=== PATIENT | male | born 1970 | race Caucasian/White ===

== ENCOUNTER 2018-09-29 08:03 | Outpatient (CLI) | payer OTHER ==
--- NOTE | 2018-09-29 12:06 | HP ---
HISTORY OF PRESENT ILLNESS: Mr. Julianne Tracy is a very pleasant 47-year-old gentleman, who [facility] for evaluation of multiple wounds of an intertriginous area of the lower abdomen. The patient states that the wounds have been present for approximately 1 year. He states that he was recently seen by Benita Dodson NP, who placed the patient on mupirocin ointment and clotrimazole ointment. The patient was also placed on doxycycline, which he is taking as prescribed. At the time of the patient's visit with Benita Dodson NP, the patient was referred to the [facility] for further evaluation and treatment. PAST MEDICAL HISTORY: Hypertension. PAST SURGICAL HISTORY: Negative. MEDICATIONS: 1. Lisinopril. 2. Doxycycline. 3. Bactroban ointment. 4. Clotrimazole ointment. ALLERGIES: NO KNOWN DIAGNOSED ALLERGIES. SOCIAL HISTORY: Social history is significant for tobacco use of 1 pack of cigarettes per day for 25 years. The patient denies any history of EtOH use. FAMILY HISTORY: Family history is negative for diabetes mellitus. Family history is significant for coronary artery disease. The patient states that his father was diagnosed with coronary artery disease. PHYSICAL EXAMINATION: VITAL SIGNS: Temperature 98.0, pulse 113, respirations 21, and blood pressure 137/102. GENERAL: A 47-year-old gentleman, lying on table in examination room, in no acute distress. HEENT: Normocephalic and atraumatic. NECK: No nuchal rigidity. CHEST: Clear to auscultation. CV: Regular rate and rhythm. ABDOMEN: Soft. Multiple wounds of the anterior abdominal wall are present in the intertriginous area below the patient's pannus. No purulent drainage is associated with any of the wounds. No cellulitis of the anterior abdominal wall is appreciated. No maceration of the skin of the periwound of any of the wounds is noted. EXTREMITIES: No clubbing or cyanosis. NEURO: Grossly nonfocal. ASSESSMENT AND PLAN: 1. Multiple wounds of the intertriginous area as described above. The patient has been asked to discontinue Bactroban ointment at the time of dressing changes. The patient has also been asked to utilize InterDry after cleansing and irrigation of the wounds and patting dry. The patient is to continue doxycycline as previously prescribed. The patient states that he is beginning a new job and would prefer to contact the clinic for followup should his wounds fail to improve. 2. Hypertension. Job ID: [id number]
[2018-09-29] MEDS ORDERED: Sodium Chloride 0.9% 15 ML NEB ONE (15:00)
== END 2018-09-29 08:04 | disposition home or self-care (01) ==
LOC: WCC 08:03
PROVIDERS: ATTEND Family Medicine
DX: A49.9 Bacterial infection, unspecified (principal); I10 Essential (primary) hypertension
CPT/HCPCS: 97602; 99203; A4218; G0463

== ENCOUNTER 2019-11-30 13:08 | Outpatient (CLI) | payer OTHER ==
--- NOTE | 2019-11-30 14:17 | RAD ---
2 VIEWS CHEST: Date: 11/30/2019 PROVIDED CLINICAL HISTORY: Virus. FINDINGS: No comparisons. Cardiac and mediastinal silhouette is within normal limits. Lungs appear clear. No pleural fluid or p neumothorax apparent. IMPRESSION: No evidence for an acute cardiopulmonary process. POS: OFF
== END 2019-11-30 13:09 | disposition home or self-care (01) ==
LOC: SCSRAD 13:08
PROVIDERS: ATTEND Family Medicine
DX: H20.9 Unspecified iridocyclitis (principal)
CPT/HCPCS: 71046

== ENCOUNTER 2024-03-03 16:18 | Outpatient (CLI) | payer OTHER | END 2024-03-03 16:19 | disposition home or self-care (01) | LOC: SCSRAD 16:18 | PROVIDERS: ATTEND Family Medicine | DX: S91.302A Unspecified open wound, left foot, initial encounter (principal); M21.962 Unspecified acquired deformity of left lower leg ==